=== PATIENT | female | born 1985 | race Hispanic/Latino ===

== ENCOUNTER 2021-01-09 21:45 | Inpatient (IN) | payer MEDICAID ==
[2021-01-09] MEDS ORDERED: LACTATED RINGERS 1,000 ML IV ONE (22:19)
[2021-01-10] MEDS ORDERED: BICITRA ORAL LIQD 30ML PO ONE (00:15)
[2021-01-10] MEDS ORDERED: LACTATED RINGERS 1,000 ML IV SCH (00:15)
[2021-01-10] MEDS ORDERED: AZITHROMYCIN/NS 500 MG/250 ML 500 MG/250 ML BAG IV ONE (00:15)
[2021-01-10] MEDS ORDERED: FAMOTIDINE 20 MG/2 ML INJ IV ONE (00:15)
[2021-01-10] MEDS ORDERED: METOCLOPRAMIDE 10 MG/2 ML INJ IV ONE (00:15)
--- NOTE | 2021-01-10 00:26 | History and Physical Report ---
History of Present Illness Date of examination: 01/10/21 Date of admission: 01/10/2021 Chief complaint: pt c/o SROM- clear fluid started around 8pm tonight, now sherrell and feeling them every 2 mins of recently History of present illness: EDC Confirmation: 03/08/2021 Gestational Age: 31.6 weeks Past History : 3 Term Births: 2 Premature Births: 0 Living Children: 2 Para: 2 Mult. Births: 0 Prev : 0 Prev. attempt? 0 Aborta: 0 Elect. Ab: 0 Spont. Ab: 0 Ectopics: 0 # 1 Delivery date: 2003 Weeks Gestation: 40 labor: no Delivery type: Delivery location: [facility] Infant Sex: Female weight: 7-7 Comments: no complications # 2 Delivery date: 04/04/2009 Weeks Gestation: 39+6 Delivery type: Vaginal Anesthesia type: epidural Delivery location: [facility] Infant Sex: female weight: 8.19 Name: Rinku Past Medical History: Negative Past Medical History Past Surgical History: negative Negative Past Surgical History Family History Summary: First Degree Blood Relative - Has No Known Family History - Entered On: 08/14/2020 Social History: Patient is single Smoking History: Patient is a former smoker. Past Medical History Surgery (Non-occupancy specialist): negative Negative Past Surgical History Abnormal PAP: negative CHRISTIANE Exposure: negative Infertility: negative Uterine Anomaly: negative Uterine Surgery (not C/S): negative Other Gynecologic Problems: negative Social Hx: Patient is single Smoking History: Patient is a former smoker. Infection History Hx of STD: HPV HIV Risk Eval: no Hepatitis B Risk Eval: low risk Personal hx. of genital herpes: no Rash, Viral, or Febrile illness since last LMP? no Varicella/Chicken Pox Status: Previous Disease TB Risk: no Genetic History ADVANCED MATERNAL AGE Congenital Heart Defect: Mom: no Dad: no Laly Disease: Mom: no Dad: no Thalassemia Mom: no Dad: no Neural Tube Defect Mom: no Dad: no Down's Syndrome Mom: no Dad: no Pasquale-Sachs Mom: no Dad: no Sickle Cell Disease/Trait Mom: no Dad: no Hemophilia Mom: no Dad: no Muscular Dystrophy Mom: no Dad: no Cystic Fibrosis Mom: no Dad: no Iman Chorea Mom: no Dad: no Mental Retardation Mom: no Dad: no Fragile X Mom: no Dad: no Other Genetic/Chromosomal Disorder Mom: no Dad: no Child w/other defect Mom: no Dad: no Enviromental Exposures Enviromental Exposures Reviewed Xray Exposure: no Medication, drug, or alcohol use since LMP: no Chemical/Other Exposure: no Exposure to Cat Liter: no Hx of Parvovirus (Fifth Disease): no Occupational Exposure to Children: none Comments: Unemployed Active Medications (reviewed today): PYRIDIUM 100 MG ORAL TABLET (PHENAZOPYRIDINE HCL) 1 po three times per day Current Allergies: No known allergies Past History Past Medical History: no pertinent history, other (see HPI) Past Surgical History: no surgical history, other (see HPI) SHED BOSS History: other (see HPI) Family/Genetic History: other (see HPI) Social history: no significant social history, other (see HPI) - Obstetrical History Expected Date of Delivery: 03/08/21 Actual Gestation: 31 Week(s) 6 Day(s) : 3 Para: 2 Hx # Term Pregnancies: 2 Number of Pregnancies: 0 Spontaneous Abortions: 0 Induced : 0 Number of Living Children: 2 #1 Infant Gender: Female year: Birthweight: 7 lb Method of Delivery: Vaginal Gestational age at delivery: 40 Complications: none #2 Gender: Female year: ,[birth year] Birthweight: 8 lb Method of Delivery: Vaginal Gestational age at delivery: 39.6 Complications: none Medications and Allergies Allergies Allergy/AdvReac Type Severity Reaction Status Date / Time No Known Allergies Allergy Verified 01/09/21 22:21 Active Meds: Active Medications Citric Acid/Sodium Citrate (Bicitra Oral Liqd 30ml) 30 ml PO ONCE ONE Stop: 01/10/21 00:16 Famotidine (Famotidine 20 Mg/2 Ml Inj) 20 mg IV ONCE ONE Stop: 01/10/21 00:16 Lactated Ringer's (Lactated Ringers) 1,000 mls @ 2,250 mls/hr IV PREOP YAMILE Stop: 01/11/21 00:42 Oxytocin/Sodium Chloride (Pitocin/Ns 30 Unit/500ml) 30 units in 500 mls @ 0 mls/hr IV TITR YAMILE; Protocol Cefazolin Sodium (Ancef/Sterile Water 2 Gm/20 Ml) 2 gm in 20 mls @ 80 mls/hr IV PREOP NR; Protocol Azithromycin (Zithromax/Ns) 500 mg in 250 mls @ 250 mls/hr IV ONCE ONE; Protocol Stop: 01/10/21 01:14 Metoclopramide HCl (Metoclopramide 10 Mg/2 Ml Inj) 10 mg IV ONCE ONE Stop: 01/10/21 00:16 Review of Systems All systems: negative Genitourinary: leakage of fluid, contractions, no vaginal bleeding - Vital Signs Vital signs: Vital Signs Pulse Pulse Ox 94 H 97 01/09/21 22:07 01/09/21 22:07 Temp Pulse Resp BP Pulse Ox 98.4 F 107 H 18 109/66 96 01/09/21 22:08 01/10/21 00:17 01/09/21 22:08 01/09/21 22:08 01/10/21 00:17 - Physical Exam Breasts: Positive: normal Cardiovascular: Regular rate Lungs: Positive: Normal air movement Abdomen: Positive: normal appearance, soft Genitourinary (Female): Positive: normal external genitalia, normal perenium Vulva: both: normal Vagina: Positive: normal moisture Cervix: Positive: other (5cm open by SVE) Uterus: Positive: normal size, normal contour Anus/Rectum: Positive: normal perianal skin Extremities: Positive: normal - Obstetrical FHR: auscultation normal, category 1 (per RN difficult to trace) Uterine Contraction Monitor Mode: External Uterine Contraction Pattern: Regular Uterine Tone Measurement Phase: Contraction Uterine Contraction Intensity: Moderate Results Abnormal lab results 01/09/21 Range/Units 22:25 Membranes Rupture Positive A (Negative) All other labs normal. Tests: (1) Profile I ([id number]) HBsAg Screen Negative Negative *1 RPR Non Reactive Non Reactive *2 Rubella Antibodies, IgG 1.47 index Immune >0.99 *3 Non-immune <0.90 Equivocal 0.90 - 0.99 Immune >0.99 ABO Grouping A *4 Rh Factor Negative *5 Please note: Prior records for this patient's ABO / Rh type are not available for additional verification. Antibody Screen Negative Negative *6 WBC [H] 11.3 x10E3/uL 3.4-10.8 *7 RBC [L] 3.38 x10E6/uL 3.77-5.28 *8 Hemoglobin [L] 10.4 g/dL 11.1-15.9 *9 Hematocrit [L] 31.1 % 34.0-46.6 *10 MCV 92 fL 79-97 *11 MCH 30.8 pg 26.6-33.0 *12 MCHC 33.4 g/dL 31.5-35.7 *13 RDW 12.4 % 11.7-15.4 *14 Platelets 271 x10E3/uL 150-450 *15 Neutrophils 80 % Not Estab. *16 Lymphs 15 % Not Estab. *17 Monocytes 4 % Not Estab. *18 Eos 1 % Not Estab. *19 Basos 0 % Not Estab. *20 ! Immature Cells <No Reported Value> *21 Neutrophils (Absolute) [H] 9.0 x10E3/uL 1.4-7.0 *22 Lymphs (Absolute) 1.7 x10E3/uL 0.7-3.1 *23 Monocytes(Absolute) 0.4 x10E3/uL 0.1-0.9 *24 Eos (Absolute) 0.1 x10E3/uL 0.0-0.4 *25 Baso (Absolute) 0.0 x10E3/uL 0.0-0.2 *26 ! Immature Granulocytes 0 % Not Estab. *27 ! Immature Grans (Abs) 0.0 x10E3/uL 0.0-0.1 *28 ! NRBC <No Reported Value> *29 Hematology Comments: <No Reported Value> *30 Tests: (2) HIV Ag/Ab with Reflex ([id number]) HIV Screen 4th Generation wRfx Non Reactive Non Reactive *31 Tests: (3) HCV Antibody reflex to JAH ([id number]) ! HCV Ab <0.1 s/co ratio 0.0-0.9 *32 Tests: (4) Interpretation: ([id number]) ! Interpretation: SPRCS *33 Negative Not infected with HCV, unless recent infection is suspected or other evidence exists to indicate HCV infection. Tests: (1) Urine Culture, Routine ([id number]) Order Note: Clinical Information: SRC:UR Urine Culture, Routine Final report *1 Tests: (2) Result ([id number]) ! Result 1 No growth Assessment and Plan Notified by RN ROM+ positive and +Nitrizine, Ultrasound @BS, Baby B breech; SVE 5cm. Dr Yan notified and POC reviewed. Orders placed for CS now. en route to bedside - Patient Problems (1) Active labor Current Visit: Yes Status: Acute (2) premature rupture of membranes Current Visit: Yes Status: Acute (3) 31 weeks gestation of Current Visit: Yes Status: Acute (4) , twins Current Visit: Yes Status: Acute (5) Rh negative state in antepartum period Current Visit: Yes Status: Acute
[2021-01-10 00:32] LABS: Basophils % (Auto) 0.4 % (0.0-1.8); Eosinophils # (Auto) 0.1 K/mm3 (0.0-0.4); Eosinophils % (Auto) 0.7 % (0.0-4.3); Hematocrit 30.6 % (30.3-42.9); Hemoglobin 10.7 gm/dl (10.1-14.3); Lymphocytes # (Auto) 2.1 K/mm3 (1.2-5.4); Lymphocytes % (Auto) 18.5 % (13.4-35.0); Mean Corpuscular HGB Conc 35 % (30-34); Mean Corpuscular Volume 92 fl (79-97); Monocytes # (Auto) 0.7 K/mm3 (0.0-0.8); Monocytes % (Auto) 6.1 % (0.0-7.3); Platelet Count 243 K/mm3 (140-440); Red Blood Count 3.32 M/mm3 (3.65-5.03); Red Cell Distribution Width 14.2 % (13.2-15.2)
--- NOTE | 2021-01-10 00:48 | Ultrasound Report ---
Limited obstetrical ultrasound INDICATION: Twin , amniotic fluid assessment Fetus A is seen in a cephalic position. Cardiac activity was documented at 148 bpm. Fetus B is in a breech position and cardiac activity was documented at 136 bpm. Placenta is not well evaluated but is free of the internal cervical os. Amniotic fluid volume was calculated at 3.9 cm which is decreased. Signer Name: Maurisio Pacheco MD Signed: 01/10/2021 12:43 AM Workstation Name: [id number]
[2021-01-10] MEDS ORDERED: KETOROLAC 30 MG/1 ML INJ ONE (01:00)
[2021-01-10] MEDS ORDERED: BUPIVACAINE/PF (0.5%) 5 MG/1 ML 30 ML VIAL INFILTRATI ONE (01:00)
[2021-01-10] MEDS ORDERED: OXYTOCIN DRIP 30 UNITS/500 ML BAG IV SCH ×2 (01:00→05:07)
[2021-01-10] MEDS ORDERED: ceFAZolin/Water 2 GM/20 ML 2 GM/20 ML SYRINGE IV NR (01:00)
[2021-01-10] MEDS ORDERED: dexAMETHasone 20 MG/5 ML VIAL ONE (01:00)
[2021-01-10] MEDS ORDERED: propofoL 200 MG/20 ML VIAL IV ONE (01:00)
[2021-01-10] MEDS ORDERED: KETAMINE/STERILE WATER 50 MG/ML SYRINGE ONE (01:00)
[2021-01-10] MEDS ORDERED: fentaNYL 100 MCG/2 ML INJ ONE (01:00)
[2021-01-10] MEDS ORDERED: ONDANSETRON 4 MG/2 ML INJ ONE (01:00)
[2021-01-10] MEDS ORDERED: PHENYLEPHRINE/NS 1,000 MCG/10 ML SYRINGE (OR USE) IV ONE (01:00)
[2021-01-10] MEDS ORDERED: NalbUPHINE 10 MG/1 ML INJ IV PRN (01:03)
[2021-01-10] MEDS ORDERED: ONDANSETRON 4 MG/2 ML INJ IV PRN ×2 (01:03→05:07)
[2021-01-10] MEDS ORDERED: PROMETHAZINE 25 MG RECT SUPP PR PRN (01:03)
[2021-01-10] MEDS ORDERED: diphenhydrAMINE 50 MG/ML VIAL IV PRN (01:03)
[2021-01-10] MEDS ORDERED: PROMETHAZINE 25 MG TAB PO PRN (01:03)
[2021-01-10] MEDS ORDERED: HYDROmorphone 1 MG/1 ML INJ IV PRN (01:03)
[2021-01-10] MEDS ORDERED: NALOXONE 0.4 MG/1 ML INJ IV PRN ×2 (01:03→05:07)
--- NOTE | 2021-01-10 01:03 | Anesthesia Day of Surgery ---
Anesthesia Day of Surgery - Day of Surgery Patient Examined: Yes Patient H&P Reviewed: Yes Patient is NPO: Yes Beta Blockers: No Cardiac Clearance: No Pulmonary Clearance: No Russ's Test: N/A
--- NOTE | 2021-01-10 01:04 | Event Note ---
Date: 01/10/21 Discussed with the patient indication for . Patient informed the risks of the surgery include bleeding possibly bleeding heavy enough to require blood transfusion, infection possible damage to bowel bladder ureter. All questions answered. Patient agrees to proceed. Patient desires permanent sterilization. She declined temporary contraceptives. She understands the risks of the surgery include bleeding infection possible damage to bowel bladder or ureters. She understands that this surgery would make her permanently sterile. She also understands the approximate 1% failure rate. The patient understands all the above and desires to proceed.
[2021-01-10] MEDS ORDERED: SODIUM CHLORIDE 0.9% IRR 1,500 ML BOTTLE IR ONE (01:50)
[2021-01-10] MEDS ORDERED: WATER FOR IRRIG STERILE 1,500 ML BOTTLE IR ONE (01:50)
--- NOTE | 2021-01-10 02:25 | Operative Report ---
Operative Report Operative Report: Date of procedure: January 10, 2021 Pre-operative diagnosis: Intrauterine at 32 weeks with twin gestation, premature rupture membranes, labor, malpresentation of second twin and desires permanent sterilization Post-operative diagnosis: Same Procedure name(s): Primary low transverse section with bilateral tubal ligation on modified Kavon type Surgeon: Giovanni Yan MD Drier Helper: Angelina Gonzales, certified nurse semiconductor processing group leader Anesthesia: Spinal EBL: 800 cc Complications: None Findings: Patient with normal uterus tubes and ovaries bilaterally. Baby A female weight 3 pounds 2 ounces Apgars 8 at 1 minute and 9 at 5 minutes baby B also female in breech presentation weight 3 pounds 4 ounces Apgars 7 at 1 minute and 9 at 5 minutes. Baby be with body and nuchal cord present Specimen(s): Placenta and portion of the right and left fallopian tubes Procedure: The patient was brought to the operating room. A spinal was placed without any complications. She was then placed in left lateral tilt. Prepped and draped in the usual sterile manner. After testing for adequate anesthesia level, a Pfannenstiel incision was made through her previous scar. This incision was taken down to the fascia. The fascia was then nicked in the midline. This incision was extended out laterally with Cuenca scissors. The fascia was then sharply and bluntly from the underlying rectus muscles. The rectus muscles were bluntly and sharply . The peritoneum was then entered with the lidding machine operator's fingers. This incision was spread vertically with care not to damage the bladder below. The Robin self-retaining tractor was then placed without any difficulty. The bladder flap was then formed sharply and bluntly with Metzenbaum scissors. A transverse incision was made in lower uterine segment. This incision was extended laterally with the operators fingers. The amniotic sac was then entered bluntly with the lidding machine operator's fingers revealing an anterior placenta. The was delivered from the vertex position. Bulb suction on the mother's abdomen. Cord clamping was delayed and then was was double clamped and cut. The infant was then passed to the nursery personnel who were in attendance. The above scores were given by the nursery personnel. The amniotic sac of the second twin was then identified, ruptured revealing clear amniotic fluid. The infant was in the breech position located the feet and delivered both through the incision. The body cord was reduced and in breech was then delivered through the incision. Breech was raised and upper extremities were then delivered both by sweeping over the shoulder flexing the upper extremities and return delivering through the incision. Nuchal cord was then identified and and reduced and after coming head was delivered without any complications. The was bulb suctioned on the mother's abdomen. Again the head delay clamping of the cord and then was double clamped and cut and infant was passed to the nursery personnel who were in attendance and the sign above score. The placenta was then bluntly removed. The uterus was then externalized and wiped clean the remaining products. The uterine incision was closed in layers. The first incision was closed in a locking manner using 0 Vicryl. This was followed by imbricating stitch also with 0 Vicryl. Attention was then switched to the patient's fallopian tubes. Each fallopian tube was identified by its fimbriated end. A portion of each tube was grabbed with the Mcminnville clamp approximately 2-3 cm from the cornua. Each loop was double ligated with 2-0 chromic suture. The loop were cut with Metzenbaum scissors. Each stump was found to be hemostatic and cauterized with the Bovie. Attention was then switched back to the uterine closure. This closure was hemostatic. The bladder flap was copiously irrigated and found to be hemostatic. The pelvis was copiously irrigated and found to be hemostatic. The uterus was then placed back to the patient's abdomen. The retractors were removed. The rectus muscles were inspected and found to be hemostatic. The fascia was then closed in a running manner using 0 Vicryl. This incision was hemostatic after irrigation and Bovie. The skin was reappro ximated with 4-0 Vicryl subcuticularly. Dermabond was placed over the skin closure. The patient tolerated procedure well. Her urine was clear. The was admitted to the intensive care nursery. The patient was accompanied to recovery room in good condition. Instrument count correct x3.
--- NOTE | 2021-01-10 02:55 | Anesthesia Consultation ---
Anesthesia Consult and Med Hx Date of service: 01/10/21 - Airway Anesthetic Teeth Evaluation: Good ROM Head & Neck: Adequate Mental/Hyoid Distance: Adequate Mallampati Class: Class II Intubation Access Assessment: Probably Good - Pulmonary Exam CTA: Yes - Cardiac Exam Cardiac Exam: RRR - Pre-Operative Health Status ASA Pre-Surgery Classification: ASA2 Proposed Anesthetic Plan: Spinal Nerve Block: TAP - Pulmonary Hx Smoking: No Hx Asthma: No COPD: No Hx Pneumonia: No Hx Sleep Apnea: No - Cardiovascular System Hx Hypertension: No Hx Heart Attack/AMI: No Hx Angina: No - Central Nervous System Hx Seizures: No Hx Psychiatric Problems: No - Gastrointestinal Hx Gastroesophageal Reflux Disease: No - Endocrine Hx End Stage Renal Disease: No Hx Liver Disease: No Hx Insulin Dependent Diabetes: No Hx Non-Insulin Dependent Diabetes: No - Other Systems Hx Alcohol Use: No
--- NOTE | 2021-01-10 02:56 | Progress Note ---
Spinal Anesthesia Block - Spinal Anesthesia Block Start Time: :11 Stop Time: :20 Performed by:: ASHTYN GILLETTE Procedure: Spinal anesthesia block is being performed for [C/S]. H&P, labs have been reviewed. Patient's questions and concerns have been answered. Informed consent has been performed. Timeout has was performed. Patient in sitting position on side of bed. Sterile prep and drape was performed. 3 mL 1% lidocaine skin wheal at L [3]-L [4]. Needle introducer advanced. 25-gauge spinal needle advanced, [+] CSF [-] blood. [Marcaine 10mg and Precedex 5mcg] Spinal dose was given. All needles removed. Patient tolerated procedure well.
--- NOTE | 2021-01-10 02:57 | Progress Note ---
Regional Anesthesia Block - Regional Anesthesia Block Start Time: 02:42 Stop Time: 02:50 Performed By:: ASHTYN GILLETTE Procedure: Patient consented for TAP block for post surgical pain management. Patient identified, monitors placed, and time out performed. Mid axillary TAP identified bilaterally via ultrasound. Skin prepped bilaterally with [chlorhexidine] and [20g stimuplex] needle advanced to the TAP. 30ml [Marcaine 0.25% with 25mcg Pre cedex and Decadron 5mg] injected under ultrasound guidance on the [left] side. 30ml [Marcaine 0.25% with 25mcg Precedex and Decadron 5mg] injected under ultrasound guidance on the [right] side. Negative aspiration every 5mL, Patient tolerated the procedure well. No apparent complications seen.
[2021-01-10] MEDS ORDERED: D5W/LACTATED RINGERS 1,000 ML IV SCH (05:07)
[2021-01-10] MEDS ORDERED: MAGNESIUM HYDROXIDE (MOM) ORAL LIQD UDC PO PRN (05:07)
[2021-01-10] MEDS ORDERED: WITCH HAZEL/ GLYCERIN PAD TP PRN (05:07)
[2021-01-10] MEDS ORDERED: LANOLIN/ZINC/DIMETHICONE (LANSINOH) 7 GM TP PRN (05:07)
[2021-01-10] MEDS: KETOROLAC 30 MG/1 ML INJ IV SCH ×3 (06:04→17:32)
--- NOTE | 2021-01-10 08:02 | Event Note ---
Date: 01/10/21 (day of surgery) pt resting, states she hasn't been to sleep in a long time. She is upset that she has not held her babies yet. Encouraged s/o to go down and take pictures. Patient aware babies are premature and can not leave the NICU. As soon as her anesthesia wears off and she is walking she can take a wheelchair ride down to see babies. Pt verbalizes understanding of situation, states she is emotional and frustrated. VSSAF, lochia scant, fundus firm.
[2021-01-10] MEDS: SIMETHICONE 80 MG CHEW TAB PO PRN (08:15)
[2021-01-10] MEDS: HYDROcodone/ACETAMINOPHEN 5-325 MG TAB PO PRN ×3 (08:16→21:50)
[2021-01-10] MEDS: ceFAZolin/NS 1 GM/50 ML 1 GM/50 ML BAG IV SCH ×2 (08:37→16:44)
[2021-01-10] MEDS: FERROUS SULFATE 325 MG TAB PO SCH (10:14)
[2021-01-10] MEDS: PRENATAL VIT27-FE FUMARATE-FOLIC ACID VIT TAB PO SCH (10:14)
[2021-01-10 19:00] LABS: Hematocrit 30.7 % (30.3-42.9); Hemoglobin 10.4 gm/dl (10.1-14.3)
[2021-01-11] MEDS: KETOROLAC 30 MG/1 ML INJ IV SCH (00:34)
[2021-01-11] MEDS ORDERED: TETANUS,DIPH,PERTUSS(ACELL) VACCINE 0.5 ML SYRINGE IM ONE (06:00)
[2021-01-11] MEDS: IBUPROFEN 800 MG TAB PO PRN ×2 (06:18→21:35)
--- NOTE | 2021-01-11 08:15 | Post Anesthesia Evaluation ---
- Post Anesthesia Evaluation Patient Participated: Yes Airway Patent: Yes Stable Respiratory Function: Yes Nausea/Vomiting: No Temp > 96.8F: Yes Pain Manageable: Yes Adequeate Hydration: Yes Anesthesia Complications: No Block Receding Appropriately: Yes
--- NOTE | 2021-01-11 08:58 | Event Note ---
Date: 01/11/21 CNM to bedside this am. Environmental services cleaning room and pt not present. Will return to bedside for Day 1 postop assessment.
[2021-01-11] MEDS: HYDROcodone/ACETAMINOPHEN 5-325 MG TAB PO PRN ×3 (10:00→20:50)
[2021-01-11] MEDS: PRENATAL VIT27-FE FUMARATE-FOLIC ACID VIT TAB PO SCH (10:01)
[2021-01-11] MEDS: SIMETHICONE 80 MG CHEW TAB PO PRN ×2 (10:01→21:41)
[2021-01-11] MEDS: FERROUS SULFATE 325 MG TAB PO SCH (10:01)
--- NOTE | 2021-01-11 13:17 | Progress Note ---
Assessment and Plan Pt laying in bed resting, denies all complaints; reports ambulating, eating, and voiding without difficulty. Pt reports twin girls are doing well in NICU; she's breastpumping. Pt reports greenish discharge when pumping and states sourcing consultant came to bedside earlier for consultation. Pt reports no change in POC per consultation assessment and she was encouraged by sourcing consultant to continue pumping until resolution. Denies fever, tenderness, and other SSx of infection. Exam unremarkeable. Reports pain adequately treated and she desires discharge home tomorrow. Spoke to pt RN and she confirms consultation performed; Spoke to Carla RN and recommendation received to continue breast pumping and monitor for SSx. Dr. Keyes made aware and no change in POC ordered. - Patient Problems (1) Rh negative state in antepartum period Current Visit: Yes Status: Acute Plan to address problem: Pt received Rhogam administration PP (2) delivery delivered Current Visit: Yes Status: Acute Plan to address problem: continue postop pathway Subjective - Subjective Date of service: 01/11/21 Principal diagnosis: Day 1 Postop C/S with BTL Interval history: EDC Confirmation: 03/08/2021 Gestational Age: 31.6 weeks Past History : 3 Term Births: 2 Premature Births: 0 Living Children: 2 Para: 2 Mult. Births: 0 Prev : 0 Prev. attempt? 0 Aborta: 0 Elect. Ab: 0 Spont. Ab: 0 Ectopics: 0 # 1 Delivery date: 2003 Weeks Gestation: 40 labor: no Delivery type: Delivery location: [facility] Infant Sex: Female weight: 7-7 Comments: no complications # 2 Delivery date: 04/04/2009 Weeks Gestation: 39+6 Delivery type: Vaginal Anesthesia type: epidural Delivery location: [facility] Infant Sex: female weight: 8.19 Name: Rinku Past Medical History: Negative Past Medical History Past Surgical History: negative Negative Past Surgical History Family History Summary: First Degree Blood Relative - Has No Known Family History - Entered On: 08/14/2020 Social History: Patient is single Smoking History: Patient is a former smoker. Past Medical History Surgery (Non-studio potter): negative Negative Past Surgical History Abnormal PAP: negative CHRISTIANE Exposure: negative Infertility: negative Uterine Anomaly: negative Uterine Surgery (not C/S): negative Other Gynecologic Problems: negative Social Hx: Patient is single Smoking History: Patient is a former smoker. Infection History Hx of STD: HPV HIV Risk Eval: no Hepatitis B Risk Eval: low risk Personal hx. of genital herpes: no Rash, Viral, or Febrile illness since last LMP? no Varicella/Chicken Pox Status: Previous Disease TB Risk: no Genetic History ADVANCED MATERNAL AGE Congenital Heart Defect: Mom: no Dad: no Laly Disease: Mom: no Dad: no Thalassemia Mom: no Dad: no Neural Tube Defect Mom: no Dad: no Down's Syndrome Mom: no Dad: no Pasquale-Sachs Mom: no Dad: no Sickle Cell Disease/Trait Mom: no Dad: no Hemophilia Mom: no Dad: no Muscular Dystrophy Mom: no Dad: no Cystic Fibrosis Mom: no Dad: no Iman Chorea Mom: no Dad: no Mental Retardation Mom: no Dad: no Fragile X Mom: no Dad: no Other Genetic/Chromosomal Disorder Mom: no Dad: no Child w/other defect Mom: no Dad: no Enviromental Exposures Enviromental Exposures Reviewed Xray Exposure: no Medication, drug, or alcohol use since LMP: no Chemical/Other Exposure: no Exposure to Cat Liter: no Hx of Parvovirus (Fifth Disease): no Occupational Exposure to Children: none Comments: Unemployed Active Medications (reviewed today): PYRIDIUM 100 MG ORAL TABLET (PHENAZOPYRIDINE HCL) 1 po three times per day Current Allergies: No known allergies Patient reports: appetite normal, voiding normally, pain well controlled, ambu lating normally, no dizzy ambulation, no appetite poor, no pain poorly controlled, no nauseated : doing well, in NICU Objective - Vital Signs Latest vital signs: Vital Signs Temp Pulse Resp BP BP Pulse Ox 01/11/21 08:00 98.3 F 86 18 113/63 99 01/11/21 07:18 18 01/11/21 06:18 18 01/11/21 01:04 18 01/11/21 00:45 97.9 F 82 18 102/61 93 01/11/21 00:34 18 01/10/21 22:50 18 01/10/21 21:50 20 01/10/21 20:37 97.9 F 84 20 99/59 92 01/10/21 17:39 97.7 F 80 20 117/64 Intake and Output 01/10/21 01/11/21 01/11/21 23:59 07:59 15:59 Intake Total 560 240 Output Total 1200 200 Balance -640 40 Intake: Oral 320 120 Intake, Free Water 240 120 Output: Urine 1200 200 Indwelling Catheter 200 Void 1000 200 Other: Total, Intake Amount 320 120 Total, Output Amount 400 200 # Voids Indwelling Catheter 2 Void 1 2 - Exam Breasts: Present: normal, other (pt reports consult and green discharge when pumping) Cardiovascular: Present: Regular rate Lungs: Present: Normal air movement Abdomen: Present: normal appearance, soft Vulva: both: normal Uterus: Present: normal, firm Extremities: Present: normal Incision: Present: normal, dry, intact. Absent: dressed
--- NOTE | 2021-01-11 16:41 | Event Note ---
Date: 01/11/21 Call received from Carla RN; RN advised breast milk cultures and continuing to monitor the pt. Recommendation reviewed with Dr. Keyes and new orders received for cultures and ultrasound. Orders placed in EMR; RN made aware by Carla BANDA.
--- NOTE | 2021-01-11 18:05 | Ultrasound Report ---
ULTRASOUND BREAST BILATERAL LIMITED, 01/11/2021 CLINICAL INFORMATION / INDICATION: Patient has bilateral green nipple discharge while lactating.. TECHNIQUE: Targeted ultrasound evaluation was performed of the area of interest. COMPARISON: None. FINDINGS: Sonographic evaluation of both breasts, concentrating on the retroareolar areas, demonstrates ductal ectasia bilaterally, as would be expected in this lactating patient. There is some minimal debris seen within the ducts, as would be expected in the immediate time frame. No solid mass or suspicious finding is noted. IMPRESSION: Bilateral ductal ectasia, also be expected in this lactating patient. No suspi cious findings. Follow up recommendation: Clinical correlation. BI-RADS Category 2: Benign. A normal or "negative" report should not preclude biopsy or follow-up of a clinically suspicious find ing. Signer Name: Paula Broussard MD Signed: 01/11/2021 6:01 PM Workstation Name: [id number]
--- NOTE | 2021-01-12 08:14 | Event Note ---
Date: 01/12/21 (In NICU) Pt not in room at time of assessment. In the NICU visiting babies. Will assess once she is back in room.
[2021-01-12] MEDS: HYDROcodone/ACETAMINOPHEN 5-325 MG TAB PO PRN ×3 (09:20→21:46)
[2021-01-12] MEDS: FERROUS SULFATE 325 MG TAB PO SCH (09:20)
[2021-01-12] MEDS: PRENATAL VIT27-FE FUMARATE-FOLIC ACID VIT TAB PO SCH (09:20)
--- NOTE | 2021-01-12 09:51 | Progress Note ---
Assessment and Plan A: 35 y.o. POD #2 from d/t labor, SROM, twins. Possible infection, green breast milk. P: Continue with care. Pain medication changed to 2 pills q 6 hrs. Awaiting preliminary culture results to develop next steps/plan. 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 Encourage continued ambulation. Subjective - Subjective Date of service: 01/12/21 (Pt anxious regarding pumping) Principal diagnosis: Day 2 Postop C/S with BTL Patient reports: appetite normal, voiding normally, flatus, ambulating normally, other (States that she is having some sorness from . 1 pain pill is somewhat helpful. Order changed to 2 q 6 hrs. Denies fever, chills. ) : doing well, in NICU Objective - Vital Signs Latest vital signs: Vital Signs Temp Pulse Resp BP BP Pulse Ox 01/12/21 08:00 97.7 F 87 18 133/69 99 01/12/21 00:07 97.9 F 88 20 109/67 95 Intake and Output 01/11/21 01/12/21 01/12/21 22:59 06:59 14:59 Intake Total 240 480 Balance 240 480 Intake: Oral 240 480 Other: Total, Intake Amount 240 240 # Voids Void 1 1 - Exam Narrative Exam: Spoke with patient today. She is doing well. She desires to go home, but understands that we are still waiting at least a preliminary result on her culture. Breast ultrasound results discussed with patient. No abnormalities seen. Breast exam as noted. Pt is pumping while provider in room. Noticed green thick breast milk. Pt and states that the milk is actually a cafe associate green and more of a thinner texture then it was yesterday. Vital signs are WNL and pt has been afebrile since admission. Spoke with laboratory staff. They state that it will be at least 24 hours for a preliminary result. This was explained to the patient as she is anxious to know what is going on. Breasts: Present: normal (No redness or masses felt. ), pain (States some soreness. ), other (No redness, warmth noted. Soft, tender. Pumping of thick green breast milk noted during breast exam. ) Cardiovascular: Present: Regular rate Lungs: Present: Normal air movement Abdomen: Present: normal appearance, soft Uterus: Present: normal, firm Extremities: Present: normal Incision: Present: normal, dry, intact, other (No s/sx of infection, no drainage noted.)
[2021-01-12] MEDS: IBUPROFEN 800 MG TAB PO PRN ×3 (11:24→23:46)
[2021-01-12] MEDS: SIMETHICONE 80 MG CHEW TAB PO PRN (23:49)
[2021-01-13 08:11] VITALS: BP 113/72
[2021-01-13] MEDS: PRENATAL VIT27-FE FUMARATE-FOLIC ACID VIT TAB PO SCH (09:13)
[2021-01-13] MEDS: FERROUS SULFATE 325 MG TAB PO SCH (09:13)
--- NOTE | 2021-01-13 09:24 | Discharge Summary ---
Providers - Providers Date of Admission: 01/10/21 00:19 Date of discharge: 01/13/21 (Pt has strong desire to go home. ) Attending physician: ARIES NARANJO 01/10/21 05:07 Consult to Director Plans [CONS] Routine Reason For Exam: Primary care physician: ARIES NARANJO Hospitalization Reason for admission: labor, rupture of membranes Delivery: Procedure: bilateral tubal ligation, primary low transverse Episiotomy: none Laceration: none Incision: normal, dry, intact Other procedures: tubal ligation complications: other (Possible infection: green breast milk) Discharge diagnosis: delivery [place] baby: twins Pertinent studies: Pt has a very strong desire to go home today. States breast milk color is now normal. Still awaiting preliminary read on cultures. Called lab and they state that preliminary read will be today. Pt has no s/sx of infection. Her breast milk is normal in color. Discussed with patient s/sx of infection and when to call provider with questions/concerns. Will call patient with culture results when available. Vital signs have been stable. Pt has been afebrile throughout admission. Hospital course: S:Pt doing well. States breast milk is a normal color. Voiding, ambulating, and passing flatus okay. O: VSS, afebrile. Adequate I&O's. Fundus firm, minimal bleeding noted. H/H 10.4/30.7. Incision open to air, intact, no s/sx of infection and no drainage noted. A: 35 y.o. s/p primary , POD #3. Normal breast milk color now. In good condition and can be discharged home. P: Discharge home with instructions. Pt to scheduled incision check in office in 1 week. Will call patient to follow up with results of cultures. Condition at discharge: Good Disposition: DC-01 TO HOME OR SELFCARE Plan - Discharge Medications Prescriptions: Ferrous Sulfate [Feosol 325 MG tab] 325 mg PO BID #60 tablet Ibuprofen [Motrin] 800 mg PO TID PRN #30 tablet PRN Reason: Pain oxyCODONE /ACETAMINOPHEN [Percocet 5/325 mg] 1 - 2 tab PO Q6HR PRN #20 tablet PRN Reason: Pain - Provider Discharge Summary Activity: routine, no sex for 6 weeks, no heavy lifting 4 weeks, no strenuous exercise Diet: routine Instructions: routine Additional instructions: [] Smoking cessation referral if applicable(refer to patient education folder for contact #) [] Refer to [facility] Booklet Call your doctor immediately for: * Fever > 100.5 * Heavy vaginal bleeding ( >1 pad per hour) * Severe persistent headache * Shortness of breath * Reddened, hot, painful area to leg or breast * Drainage or odor from incision. * Keep incision clean and dry at all times and follow doctor's instructions regarding bathing/showering Congratulations on your twins!! Please schedule an incision check in the office in 1 week. If you have any questions or concerns after discharge, please do not hesitate to call the office at [phone]. Please watch for s/sx of infection which includes: Redness, warmth, fever of 100.4 or greater, and increase in drainage from incision. For breast, call provider if the following signs or symptoms occur: warmth and redness of the breast, or if breast milk color is brown, green, red, or if you have a fever of 100.4 or greater. We will call you regarding the results of your breast milk culture. This may take up to a week. - Follow up plan Follow up: ARIES NARANJO MD [Primary Care Provider] - 7 Days Forms: [facility] Discharge Summary
== END 2021-01-13 11:00 | disposition home or self-care (01) | DRG 765 ==
LOC: TRG 21:45 → APU 21:52 → TRG 01-10 00:19 → APU 01-10 00:19 → OB 01-10 05:06
PROVIDERS: ADMIT Obstetrics & Gynecology; ATTEND Obstetrics & Gynecology
PROC: 10D00Z1 Extraction of Products of Conception, Low, Open Approach (ICD-10-PCS; principal; 2021-01-10)
PROC: 0UB70ZZ Excision of Bilateral Fallopian Tubes, Open Approach (ICD-10-PCS; 2021-01-10)
PROC: 3E0234Z Introduction of Serum, Toxoid and Vaccine into Muscle, Percutaneous Approach (ICD-10-PCS; 2021-01-10)
PROC: 3E0T3BZ Introduction of Anesthetic Agent into Peripheral Nerves and Plexi, Percutaneous Approach (ICD-10-PCS; 2021-01-10)
PROC: 3E0234Z Introduction of Serum, Toxoid and Vaccine into Muscle, Percutaneous Approach (ICD-10-PCS; 2021-01-11)
DX: O42.013 Preterm premature rupture of membranes, onset of labor within 24 hours of rupture, third trimester (principal); O60.14X2 Preterm labor third trimester with preterm delivery third trimester, fetus 2; O60.14X1 Preterm labor third trimester with preterm delivery third trimester, fetus 1; O30.003 Twin pregnancy, unspecified number of placenta and unspecified number of amniotic sacs, third trimester; Z20.822 Contact with and (suspected) exposure to COVID-19; Z3A.31 31 weeks gestation of pregnancy; Z37.2 Twins, both liveborn; Z87.891 Personal history of nicotine dependence; Z23 Encounter for immunization; O26.893 Other specified pregnancy related conditions, third trimester; Z67.11 Type A blood, Rh negative; O32.1XX2 Maternal care for breech presentation, fetus 2; Z30.2 Encounter for sterilization
CPT/HCPCS: 36415; 59025; 76815; 84112; 85014; 85018; 85025; 85461; 86850; 86870; 86900; 86901; 87075; 87116; 88302; 88307; 90471; 90715; 96360; 96365; 99211; 99406; G0378; G0463; J0690; J1100; J1885; J2370; J2405; J2704; J2765; J2790; J3010; J3490; J7120; U0003